=== PATIENT | male | born 1965 | race Native Hawaiian/Other Pacific Islander ===

== ENCOUNTER 2019-08-24 11:44 | Emergency (ER) | payer OTHER ==
--- NOTE | 2019-08-24 11:56 | ERPHSYRPT ---
- History of Present Illness Time Seen by Provider: 08/24/19 11:48 Source: patient Exam Limitations: no limitations Physician History: last tuesday was having his work nettie try to "pop" his back and the nettie squeezed patient's chest too tight. is now having pain to left lower anterior ribs. Timing/Duration: day(s) (6) Severity: moderate Modifying Factors: Improves With: movement Associated Symptoms: cough, No nausea, No vomiting, No abdominal pain, No shortness of breath, No heartburn, No diaphoresis, No chills, No fever, No headaches, No loss of appetite, No malaise, No rash, No syncope Allergies/Adverse Reactions: aspirin Allergy (Verified 08/24/19 12:06) metformin Allergy (Verified 08/24/19 12:06) Home Medications: Atorvastatin Calcium [Lipitor] 80 mg PO DAILY 08/24/19 [History] Insulin Degludec [Tresiba Flextouch U-100] 54 units SQ DAILY 08/24/19 [History] Levothyroxine Sodium 100 mcg PO DAILY 08/24/19 [History] Liraglutide [Victoza 2-Morales] 1.8 mg SQ DAILY 08/24/19 [History] Lisinopril 10 mg [Zestril 10 MG] 10 mg PO DAILY 08/24/19 [History] glipiZIDE [Glipizide] 10 mg PO DAILY 08/24/19 [History] - Review of Systems Constitutional: No Fever, No Chills Eyes: No Symptoms Ears, Nose, & Throat: No Symptoms Respiratory: Other (Left Ant lower chest wall pain), No Cough, No Dyspnea Cardiac: No Chest Pain, No Edema, No Syncope Abdominal/Gastrointestinal: No Abdominal Pain, No Nausea, No Vomiting, No Diarrhea Genitourinary Symptoms: No Dysuria Musculoskeletal: Other (Left Ant lower chest wall pain), No Back Pain, No Neck Pain Skin: No Rash Neurological: No Dizziness, No Focal Weakness, No Sensory Changes Psychological: No Symptoms Endocrine: No Symptoms All Other Systems: Reviewed and Negative - Nursing Vital Signs Nursing Vital Signs: Initial Vital Signs Pulse Rate 97 H 08/24/19 11:48 Respiratory Rate 16 08/24/19 11:48 Blood Pressure 118/87 08/24/19 11:48 O2 Sat by Pulse Oximetry 99 08/24/19 11:48 Pain Scale Pain Intensity 5 - Physical Exam General Appearance: no apparent distress, alert Eye Exam: PERRL/EOMI, eyes nml inspection Ears, Nose, Throat Exam: normal ENT inspection, TMs normal, pharynx normal, moist mucous membranes Neck Exam: normal inspection, non-tender, supple, full range of motion Respiratory Exam: normal breath sounds, lungs clear, other (Left Ant lower chest wall pain, tenderness. spasm+), No respiratory distress Cardiovascular Exam: regular rate/rhythm, normal heart sounds, normal peripheral pulses Gastrointestinal/Abdomen Exam: soft, normal bowel sounds, No tenderness, No mass Back Exam: normal inspection, normal range of motion, No CVA tenderness, No vertebral tenderness Extremity Exam: normal inspection, normal range of motion, pelvis stable Neurologic Exam: alert, oriented x 3, cooperative, normal mood/affect, nml cerebellar function, nml station & gait, sensation nml, No motor deficits Skin Exam: normal color, warm, dry, No rash Lymphatic Exam: No adenopathy SpO2 Interpretation: normal O2 Delivery: Room Air - Course Nursing assessment & vital signs reviewed: Yes - Radiology Exams Chest X-ray Interpretation: Reviewed by me, No Fracture Ordered Tests: Active Orders 24 hr Category Date Time Status RIBS UNILATERAL Stat Exams 08/24/19 12:05 Taken - Progress Progress: unchanged Progress Note: Pt does not want anything for pain 08/24/19 12:30 Counseled pt/family regarding: diagnosis, need for follow-up, rad results ( Possibility of Occult and Missed Fx and need for x ray report follow up) - Departure Departure Disposition: Home Clinical Impression: Chest wall contusion Qualifiers: Encounter type: initial encounter Laterality: left Qualified Code(s): S20.212A - Contusion of left front wall of thorax, initial encounter Condition: Stable Critical Care Time: No Instructions: Bruised Rib Additional Instructions: See PCP in 1-3 days, follow up on X ray report
[2019-08-24 12:06] VITALS: BP 118/87; PULSE 97; O2SAT 99
--- NOTE | 2019-08-24 19:14 | XRAY ---
Indication: Pain following injury. Comparison: None 2 views of the left ribs demonstrates mild AC degenerative arthropathy and previous cholecystectomy. No other bony, articular, or soft tissue abnormalities.
== END 2019-08-24 12:46 | disposition home or self-care (01) ==
LOC: ED 11:44
DX: S20.212A Contusion of left front wall of thorax, initial encounter (principal); R07.81 Pleurodynia; X50.9XXA Other and unspecified overexertion or strenuous movements or postures, initial encounter
CPT/HCPCS: 71100; 99283